=== PATIENT | male | born 1990 | race Caucasian/White ===

== ENCOUNTER 2020-07-30 14:13 | Emergency (ER) | payer OTHER, SELFPAY ==
[2020-07-30] MEDS ORDERED: NA CHLORIDE 0.9% 1,000 ML ONE (15:42)
[2020-07-30 15:52] LABS: Absolute Lymphocytes (CBC) 2.6 K/uL (0.7-4.9); Basophils % 0.6 % (0-1.3); Hematocrit 43.3 % (39.6-49.0); Lymphocytes % 23.5 % (15.3-44.8); MPV 8.2 fL (7.6-11.3); RBC Red Blood Cell Count 4.71 M/uL (4.33-5.43)
[2020-07-30 16:11] LABS: ALT/SGPT 24 U/L (12-78); AST/SGOT 17 U/L (15-37); Albumin 3.9 g/dL (3.4-5.0); Alkaline Phosphatase 86 U/L (45-117); BUN Blood Urea Nitrogen 6 mg/dL (7-18); Bicarbonate 32 mmol/L (21-32); Bilirubin Direct 0.1 mg/dL (0-0.2); Bilirubin Total 0.4 mg/dL (0.2-1.0); Glucose Level 86 mg/dL (74-106); Lipase 78 U/L (73-393); Potassium 3.6 mmol/L (3.5-5.1); Protein, Total 7.5 g/dL (6.4-8.2); Sodium Level 141 mmol/L (136-145)
--- NOTE | 2020-07-30 16:21 | RAD REPORT ---
EXAM DESCRIPTION: CTAbdomen Pelvis W Contrast - 07/30/2020 4:13 pm CLINICAL HISTORY: Abdominal pain. ABD PAIN COMPARISON: No comparisons TECHNIQUE: Biphasic CT imaging of the abdomen and pelvis was performed with 100 ml non-ionic IV cont rast. All CT scans are performed using dose optimization technique as appropriate and may include automated exposure control or mA/KV adjustment according to patient size. FINDINGS: The lung bases are clear. The liver, spleen, pancreas, adrenal glands are within normal limits. Numerous caliceal stones are pr esent bilaterally without hydronephrosis. No bowel obstruction, free air, free fluid or abscess. The appendix is normal. No evidence of signi ficant lymphadenopathy. No suspicious bony findings. IMPRESSION: Bilateral nephrolithiasis without hydronephrosis.
--- NOTE | 2020-07-30 16:45 | ER ---
Nurse's Notes [facility] Name: Oliverio Russell Jr Age: 30 yrs Sex: Male : 1990 Arrival Date: 07/30/2020 Time: 14:14 Bed 16 Private MD: Diagnosis: Diarrhea, unspecified;Generalized abdominal pain Presentation: 07/30 14:32 Chief complaint: Patient states: Upper abdominal pain x months. Noticed worm in stool, ca1 feels like there's worm in my belly. Reports nausea, diarrhea x months. Coronavirus screen: Client denies travel out of the [place] in the last 14 days. At this time, the client does not indicate any symptoms associated with coronavirus-19. Ebola Screen: Patient negative for fever greater than or equal to 101.5 degrees Fahrenheit, and additional compatible Ebola Virus Disease symptoms Patient denies exposure to infectious person. Patient denies travel to an Ebola-affected area in the 21 days before illness onset. No symptoms or risks identified at this time. Initial Sepsis Screen: Does the patient meet any 2 criteria? No. Patient's initial sepsis screen is negative. Does the patient have a suspected source of infection? No. Patient's initial sepsis screen is negative. Risk Assessment: Do you want to hurt yourself or someone else? Patient reports no desire to harm self or others. Onset of symptoms was July 30, 2020. 14:32 Method Of Arrival: Ambulatory ca1 14:32 Acuity: LENARD 3 ca1 Historical: - Allergies: 14:34 No Known Allergies; ca1 - Home Meds: 14:34 None [Active]; ca1 - PMHx: 14:34 None; ca1 - PSHx: 14:34 None; ca1 - Immunization history:: Adult Immunizations up to date. - Social history:: Smoking status: Patient reports the use of cigarette tobacco products, smokes one-half pack cigarettes per day, Patient uses alcohol, on a daily basis. street drugs, marijuana. Screenin:12 Abuse screen: Denies threats or abuse. Nutritional screening: No deficits noted. tw2 Tuberculosis screening: No symptoms or risk factors identified. Fall Risk None identified. Assessment: 15:15 Reassessment: provider at bedside at this time. tw2 15:38 General: Appears in no apparent distress. slender, Behavior is calm, cooperative, tw2 appropriate for age. Pain: Complains of pain in abdomen. Neuro: Level of Consciousness is awake, alert, obeys commands, Oriented to person, place, time, situation. Cardiovascular: Heart tones S1 S2 Patient's skin is warm and dry. Respiratory: Airway is patent Respiratory effort is even, unlabored, Respiratory pattern is regular, symmetrical, Breath sounds are clear bilaterally. GI: Abdomen is flat, Bowel sounds present X 4 quads. Abd is soft X 4 quads Reports lower abdominal pain, upper abdominal pain. : No signs and/or symptoms were reported regarding the genitourinary system. EENT: No signs and/or symptoms were reported regarding the EENT system. Derm: No signs and/or symptoms reported regarding the dermatologic system. Musculoskeletal: Range of motion: intact in all extremities. 16:20 Reassessment: Patient appears in no apparent distress at this time. No changes from tw2 previously documented assessment. Patient and/or family updated on plan of care and expected duration. Pain level reassessed. Patient is alert, oriented x 3, equal unlabored respirations, skin warm/dry/pink. pt back from CT at this time, was found walking out into lobby, pt states "i just need to go smoke", pt educated as to smoke free campus and need to wait in exam room d/t IV, pt states "aww man just take the iv out then i will come back" pt educated as to policies and procedures, agreeable to wait in exam room at this time. once in exam room pt states "well at least let me got get something to eat", pt educated as to the need to wait for results at this time. pt again agreeable. 16:40 Reassessment: pt states "i just am ready to go, i dont want to wait anymore", provider tw2 notified. 16:49 Reassessment: Patient appears in no apparent distress at this time. No changes from tw2 previously documented assessment. Patient and/or family updated on plan of care and expected duration. Pain level reassessed. Patient is alert, oriented x 3, equal unlabored respirations, skin warm/dry/pink. provider at bedside at this time. Vital Signs: 14:35 BP 149 / 108; Pulse 116; Resp 18 S; Temp 99.3(TE); Pulse Ox 99.3% on R/A; Weight 68.04 ca1 kg (R); Height 5 ft. 9 in. (175.26 cm) (R); 15:40 BP 129 / 85; Pulse 80; Resp 16; Pulse Ox 100% on R/A; tw2 16:21 BP 129 / 85; Pulse 88; Resp 17; Temp 98.4(O); Pulse Ox 100% on R/A; tw2 14:35 Body Mass Index 22.15 (68.04 kg, 175.26 cm) ca1 ED Course: 14:14 Patient arrived in ED. ag5 14:34 Triage completed. ca1 14:34 Arm band placed on right wrist. ca1 15:02 Ezra Marie PA is PHCP. jr8 15:02 Chris Ardon MD is Attending Physician. jr8 15:11 Radhika Worthington, GERTRDUE is Primary Nurse. tw2 15:12 Placed in gown. Bed in low position. Call light in reach. Pulse ox on. NIBP on. tw2 15:38 Inserted saline lock: 20 gauge in left antecubital area, using aseptic technique. Blood tw2 collected. 15:41 Stool Culture Sent. tw2 15:42 Ova And Parasites Sent. tw2 15:42 Occult Blood Sent. tw2 15:42 CDIFF Sent. tw2 16:13 CT Abd/Pelvis - IV Contrast Only In Process Unspecified. EDMS 16:45 Andrés Esteban MD is Referral Physician. jr8 16:51 No provider procedures requiring assistance completed. IV discontinued, intact, tw2 bleeding controlled, No redness/swelling at site. Pressure dressing applied. Administered Medications: 15:38 Drug: NS 0.9% 1000 ml Route: IV; Rate: 1000 ml; Site: left antecubital; tw2 16:20 Follow up: Response: No adverse reaction; IV Status: Completed infusion; IV Intake: tw2 1000ml Intake: 16:20 IV: 1000ml; Total: 1000ml. tw2 Outcome: 16:45 Discharge ordered by . jr8 16:51 Discharged to home ambulatory. tw2 16:51 Condition: stable 16:51 Discharge instructions given to patient, Instructed on discharge instructions, follow up and referral plans. no drinking with medication, no driving heavy equipment, medication usage, Demonstrated understanding of instructions, follow-up care, medications, Prescriptions given X 2. 16:51 Patient left the ED. tw2 Signatures: Dispatcher [employer] EDMS Ezra Marie PA PA jr8 Radhika Worthington RN RN tw2 Marielle Smith RN RN ca1 Joanna uJdge ag5 Corrections: (The following items were deleted from the chart) 16:23 16:21 BP 129 / 85; Pulse 88bpm; Resp 17bpm; Pulse Ox 100% RA; tw2 tw2 16:23 16:20 Reassessment: Patient appears in no apparent distress at this time. No changes tw2 from previously documented assessment. Patient and/or family updated on plan of care and expected duration. Pain level reassessed. Patient is alert, oriented x 3, equal unlabored respirations, skin warm/dry/pink. pt back from CT at this time, was found walking out into [facility], pt states "i just need to go smoke", pt educated as to smoke free campus and need to wait in exam room d/t IV, pt states "aww man just take the iv out then i will come back" pt educated as to policies and procedures, agreeable to wait in exam room at this time. tw2 16:50 16:49 Reassessment: Patient appears in no apparent distress at this time. No changes tw2 from previously documented assessment. Patient and/or family updated on plan of care and expected duration. Pain level reassessed. Patient is alert, oriented x 3, equal unlabored respirations, skin warm/dry/pink. tw2
--- NOTE | 2020-07-30 16:46 | EDPHYS ---
Physician Documentation [facility] Name: Oliverio Russell Jr Age: 30 yrs Sex: Male : 1990 Arrival Date: 07/30/2020 Time: 14:14 Bed 16 Private MD: ED Physician Chris Ardon HPI: 07/30 16:48 This 30 yrs old Male presents to ER via Ambulatory with complaints of jr8 Abdominal Pain. 16:48 The patient presents with abdominal pain that is diffuse. Onset: The symptoms/episode jr8 began/occurred gradually, 2 month(s) ago. The symptoms do not radiate. Associated signs and symptoms: Pertinent positives: diarrhea, nausea. The symptoms are described as crampy. Modifying factors: The symptoms are alleviated by nothing, the symptoms are aggravated by nothing. Severity of pain: At its worst the pain was mild in the emergency department the pain is unchanged. The patient has not experienced similar symptoms in the past. The patient has not recently seen a physician. Patient stated that he has had diarrhea with clear looking material in it along with cramping for the past couple of moths without relief. Denies heavy drinking, recent travel, or heavy NSAID use. Feels that he has a "worm" in him. Historical: - Allergies: 14:34 No Known Allergies; ca1 - Home Meds: 14:34 None [Active]; ca1 - PMHx: 14:34 None; ca1 - PSHx: 14:34 None; ca1 - Immunization history:: Adult Immunizations up to date. - Social history:: Smoking status: Patient reports the use of cigarette tobacco products, smokes one-half pack cigarettes per day, Patient uses alcohol, on a daily basis. street drugs, marijuana. ROS: 16:48 Eyes: Negative for injury, pain, redness, and discharge, ENT: Negative for injury, jr8 pain, and discharge, Neck: Negative for injury, pain, and swelling, Cardiovascular: Negative for chest pain, palpitations, and edema, Respiratory: Negative for shortness of breath, cough, wheezing, and pleuritic chest pain, Back: Negative for injury and pain, MS/Extremity: Negative for injury and deformity, Skin: Negative for injury, rash, and discoloration, Neuro: Negative for headache, weakness, numbness, tingling, and seizure. 16:48 Abdomen/GI: Positive for nausea, diarrhea, abdominal cramps. Exam: 16:48 Eyes: Pupils equal round and reactive to light, extra-ocular motions intact. Lids and jr8 lashes normal. Conjunctiva and sclera are non-icteric and not injected. Cornea within normal limits. Periorbital areas with no swelling, redness, or edema. ENT: Nares patent. No nasal discharge, no septal abnormalities noted. Tympanic membranes are normal and external auditory canals are clear. Oropharynx with no redness, swelling, or masses, exudates, or evidence of obstruction, uvula midline. Mucous membranes moist. Neck: Trachea midline, no thyromegaly or masses palpated, and no cervical lymphadenopathy. Supple, full range of motion without nuchal rigidity, or vertebral point tenderness. No Meningismus. Cardiovascular: Regular rate and rhythm with a normal S1 and S2. No gallops, murmurs, or rubs. Normal PMI, no JVD. No pulse deficits. Respiratory: Lungs have equal breath sounds bilaterally, clear to auscultation and percussion. No rales, rhonchi or wheezes noted. No increased work of breathing, no retractions or nasal flaring. Abdomen/GI: Soft, non-tender, with normal bowel sounds. No distension or tympany. No guarding or rebound. No evidence of tenderness throughout. Back: No spinal tenderness. No costovertebral tenderness. Full range of motion. Skin: Warm, dry with normal turgor. Normal color with no rashes, no lesions, and no evidence of cellulitis. MS/ Extremity: Pulses equal, no cyanosis. Neurovascular intact. Full, normal range of motion. Neuro: Awake and alert, GCS 15, oriented to person, place, time, and situation. Cranial nerves II-XII grossly intact. Motor strength 5/5 in all extremities. Sensory grossly intact. Cerebellar exam normal. Normal gait. Vital Signs: 14:35 BP 149 / 108; Pulse 116; Resp 18 S; Temp 99.3(TE); Pulse Ox 99.3% on R/A; Weight 68.04 ca1 kg (R); Height 5 ft. 9 in. (175.26 cm) (R); 15:40 BP 129 / 85; Pulse 80; Resp 16; Pulse Ox 100% on R/A; tw2 16:21 BP 129 / 85; Pulse 88; Resp 17; Temp 98.4(O); Pulse Ox 100% on R/A; tw2 14:35 Body Mass Index 22.15 (68.04 kg, 175.26 cm) ca1 MDM: 15:04 Patient medically screened. [facility] 16:44 Data reviewed: vital signs, nurses notes, lab test result(s), radiologic studies, CT jr8 scan, and as a result, I will discharge patient. Data interpreted: Pulse oximetry: on room air is 100 %. Interpretation: normal. Counseling: I had a detailed discussion with the patient and/or guardian regarding: the historical points, exam findings, and any diagnostic results supporting the discharge/admit diagnosis, lab results, radiology results, the need for outpatient follow up, a machine welt butter, to return to the emergency department if symptoms worsen or persist or if there are any questions or concerns that arise at home. 16:44 ED course: Patient hemodynamically stable and without acute blood or CT findings. jr8 Insistent on leaving before the stool sample comes back. Will d/c to f/u with GI . 07/30 15:20 Order name: Basic Metabolic Panel; Complete Time: 16:44 [facility] 07/30 15:20 Order name: CBC with Diff; Complete Time: 16:44 [facility] 07/30 15:20 Order name: Hepatic Function; Complete Time: 16:44 07/30 15:20 Order name: Lipase; Complete Time: 16:44 [facility] 07/30 15:31 Order name: Stool Culture [facility] 07/30 15:31 Order name: Ova And Parasites [facility] 07/30 15:20 Order name: IV Saline Lock; Complete Time: 15:41 07/30 15:20 Order name: Labs collected and sent; Complete Time: 15:41 07/30 15:31 Order name: Occult Blood [facility] 07/30 15:31 Order name: CDIFF [facility] 07/30 15:31 Order name: CT Abd/Pelvis - IV Contrast Only; Complete Time: 16:44 jr Administered Medications: 15:38 Drug: NS 0.9% 1000 ml Route: IV; Rate: 1000 ml; Site: left antecubital; tw2 16:20 Follow up: Response: No adverse reaction; IV Status: Completed infusion; IV Intake: tw2 1000ml Disposition: 07/31 08:21 Co-signature as Attending Physician, Chris Ardon MD I agree with the assessment and elisha plan of care. Disposition: 07/30/20 16:45 Discharged to Home. Impression: Diarrhea, unspecified, Generalized abdominal pain. - Condition is Stable. - Discharge Instructions: Abdominal Pain, Adult, Diarrhea, Adult. - Prescriptions for Bentyl 20 mg Oral Tablet - take 1 tablet by ORAL route every 6 hours As needed; 20 tablet. Zofran 4 mg Oral Tablet - take 1 tablet by ORAL route every 12 hours As needed; 20 tablet. - Medication Reconciliation Form, Thank You Letter, Antibiotic Education, Prescription Opioid Use form. - Follow up: Andrés Esteban MD; When: 2 - 3 days; Reason: Recheck today's complaints, Continuance of care, Re-evaluation by your physician. - Problem is new. - Symptoms are unchanged. Signatures: Dispatcher [employer] [facility] Chris Ardon MD MD cha Roszak, Josh, PA PA jr8 Radhika Worthington RN RN tw2 Marielle Smith RN RN ca1 Corrections: (The following items were deleted from the chart) 07/30 16:51 16:45 07/30/2020 16:45 Discharged to Home. Impression: Diarrhea, unspecified; tw2 Generalized abdominal pain. Condition is Stable. Forms are Medication Reconciliation Form, Thank You Letter, Antibiotic Education, Prescription Opioid Use. Follow up: Andrés Esteban; When: 2 - 3 days; Reason: Recheck today's complaints, Continuance of care, Re-evaluation by your physician. Problem is new. Symptoms are unchanged. jr8
[2020-07-30 17:34] VITALS: BP 129/85; O2SAT 100
[2020-07-30 17:36] VITALS: TEMP 98.4
[2020-07-31 13:55] LABS: C.diff Antigen/Toxin Ag neg : Tox neg (NEG : NEG)
== END 2020-07-30 16:51 | disposition home or self-care (01) ==
LOC: ER 14:13
DX: R19.7 Diarrhea, unspecified (principal); F17.210 Nicotine dependence, cigarettes, uncomplicated
CPT/HCPCS: 36415; 74177; 80048; 80076; 82274; 82565; 83690; 85025; 87045; 87046; 87177; 87209; 87324; 87449; 96360; 99284; J7030; Q9967

== ENCOUNTER 2022-01-06 14:35 | Emergency (ER) | payer SELFPAY ==
--- OUTSIDE RECORDS SUMMARY | 2022-01-06 14:40 | XMS REPORT | Continuity of Care Document ---
:1990 Author Organization [facility] t Address [address] [place] [address] Care Team Providers Name Role Phone PCP, DOES NOT HAVE A Primary Care Physician Unavailable HAROON Attending Clinician Unavailable NESHA PATIÑO Attending Clinician Unavailable Attending Clinician Unavailable Singer HAYES Attending Clinician DORYS Attending Clinician Unavailable Ebrahim HULL DRAFTER Attending Clinician DEQUAN Attending Clinician Unavailable Dequan HANKINS Attending Clinician NESHA PAYNE Attending Clinician Unavailable NELY Attending Clinician Unavailable JAQUELINE Attending Clinician Unavailable Micaela Lamb MD Attending Clinician Ivonne Go Attending Clinician Unavailable Micaela LAMB Attending Clinician Unavailable Admitting Clinician Unavailable EBRAHIM Admitting Clinician Unavailable NELY Admitting Clinician Unavailable Physician, Primary or Family Admitting Clinician Unavailabl e Payers Payer Name Policy Type Policy Number Effective Date Expiration Date S ource [employer]IME [employer]'S [id number] 2021 2021 COMPENSATION 00:00:00 00:00:00 Problems Condition Condition Condition Status Onset Resolution Last Treating Co mments Source Name Details Category Date Date Treatment Clinician Date No known No known Disease Unive rs active active ity of problems problems [facility] Allergies, Adverse Reactions, Alerts Allergy Allergy Status Severity Reaction(s) Onset Inactive Treating Comm ents Source Name Type Date Date Clinician No Known DA Active U [facility] 07[facility]07 [facility] d 00 [facility] No Known DA Active [facility] NO KNOWN Drug Active Univers ALLERGIE Class ity of S [facility] Social History Social Habit Start Date Stop Date Quantity Comments Source Exposure to Not sure [facility] SARS-CoV-2 (event) Medica l Branch Sex Assigned At [birth year] [facility] 00:00:00 00:00:00 [facility] Smoking Status Start Date Stop Date Source Unknown if ever smoked [facility] Medications Ordered Filled Start Stop Current Ordering Indication Dosage Frequency Signature Comments Components Source Medication Medication Date Date Medication? Clinician (SIG) Name Name HYDROcodone 2021- No 1{tbl} 1 tablet, Univers -acetaminop 12-28 Oral, ity of hen (NORCO) 21:30: 20[place]25 [place] 10[place]325 [place] :00 dose, On Medica l tablet 1 [facility] Branch tablet 12/28/21 at 1530, Routine iopamidol 2021- No [id number] 100mL 100 mL, Univers (ISOVUE 12-28 Intravenou ity o f 370-500 mL) 20:00: 18:40 s, ONCE, 1 [place] injection 00 :00 dose, On Medica l 100 mL Sat Branch 12/28/21 at 1400, Routine NaCl 0.9% 2021- No 500mL at 999 Univ ers (NS) bolus 12-28 mL/hr, 500 it y of infusion 18:15: 20:47 mL, IV [place] 500 mL 00 :00 Infusion, Medical ONCE, 1 Branch dose, On 12/28/21 at 1215, STAT ondansetron 2021- No 4mg 4 mg, Slow Univers (ZOFRAN 12-28 IV Push, ity of (PF)) 18:15: 18:43 ONCE, 1 [place] injection 4 00 :00 dose, On Medi emery mg Sat Branch 12/28/21 at 1215, Routine FENTanyl PF 2021- No 50ug 50 mcg, Un yesica (SUBLIMAZE 12-28 Slow IV ity o f (PF)) 18:15: 18:46 Push, [place] injection 00 :00 ONCE, 1 Medical 50 mcg dose, On Branch 12/28/21 at 1215, Routine naproxen Yes [id number] 550mg Take 1 U nivers sodium 12-28 tablet by ity of (ANAPROX 00:00: mouth 2 [place] DS) 550 mg 00 (two) Medical tablet times Branch daily with meals. methylPREDN Yes [id number] Take by Univers ISolone 12-28 mouth ity of (MEDROL, 00:00: SEE-INSTRU Thanh as CHAKA,) 4 mg 00 CTIONS. Medica l tablets follow Branch package directions methocarbam 2021- Yes [id number] 500mg Take 1 Univers oL 500 mg 12-28 tablet by ity of tablet 00:00: 05:59 mouth 3 [place] 00 :00 (three) Medical times Branch daily for 5 days. famotidine No 20mg 20 mg, Univ ers (PEPCID 12-23 Slow IV ity of (PF)) 02:30: 01:31 Push, [place] injection 00 :00 ONCE, 1 Medical 20 mg dose, On Branch 12/22/21 at 2030, DOMINIK maalox:diph No 15mL 15 mL, Uni vers enhydrAMINE 12-23 Oral, ity of :lidocaine 02:30: 01:32 ONCE, 1 Thanh as 2 % viscous 00 :00 dose, On Medi emery 1:1:1 12/22/21 Branch (FIRST-MOUT at 2030, [facility]) Routine oral suspension 15 mL ondansetron 2021- No 4mg 4 mg, Slow Univers (ZOFRAN 12-23 IV Push, ity of (PF)) 02:30: 01:31 ONCE, 1 [place] injection 4 00 :00 dose, On Medi emery mg 12/22/21 Branch at 2030, DOMINIK morpHINE 2021- No 4mg 4 mg, Slow Un yesica injection 4 12-23 IV Push, ity of mg 02:30: 01:31 ONCE, 1 [place] 00 :00 dose, On Medical 12/22/21 Branch at 2030, STAT NaCl 0.9% 2021- No 1000mL at 999 Uni vers (NS) bolus 12-23 mL/hr, ity of infusion 02:30: 05:01 1,000 mL, Thanh as 1,000 mL 00 :00 IV Medical Infusion, Branch ONCE, 1 dose, On 12/22/21 at 2030, DOMINIK iohexol 2021- No [id number] 120mL 120 mL, U nivers (OMNIPAQUE 12-23 Intravenou it y of 350 02:00: 01:45 s, ONCE, 1 [place] BULK-100 00 :00 dose, On Medical mL) 12/22/21 Branch injection at 2000, 120 mL Routine dicyclomine 2021- Yes [id number] 10mg Take 1 Univers 10 mg 12-22 capsule by ity of capsule 00:00: 05:59 mouth 4 [place] 00 :00 (four) Medical times Branch daily for 7 days. famotidine 2021- Yes [id number] 20mg Take 1 Univers (PEPCID) 20 12-22 tablet by it y of mg tablet 00:00: 05:59 mouth 2 [place] 00 :[place] (two) Medical times Branch daily for 7 days. dicyclomine 2021- Yes [id number] 10mg Take 1 Univers 10 mg 12-22 capsule by ity of capsule 00:00: 05:59 mouth 4 [place] 00 :00 (four) Medical times Branch daily for 7 days. famotidine 2021- Yes [id number] 20mg Take 1 Univers (PEPCID) 20 12-22 tablet by it y of mg tablet 00:00: 05:59 [place] 2 [place] 00 :[place] (two) Medical times Branch daily for 7 days. ondansetron 2021- Yes [id number] 4mg Take 1 Univers 4 mg 12-22 tablet by ity of disintegrat 00:00: 05:59 [place] tablet 00 :00 every 8 Medica l (eight) Branch hours as needed for Nausea and Vomiting (N/V) for up to 5 days. clindamycin 2020-2021- Yes [id number] 300mg Take 1 Univers 300 mg 2-30 11-25 capsule by ity of capsule 00:00: 05:59 mouth 4 [place] 00 :00 (four) Medical times Branch daily for 10 days. Immunizations Ordered Filled Immunization Date Status Comments [facility] e Immunization Name Name Td 1992-02-20 Completed University of 00:00:00 [facility] Td 1992-02-20 Completed University of 00:00:00 [facility] 1992-02-20 Completed University of 00:00:00 [facility] 1992-02-20 Completed University of 00:00:00 [facility] DT 1991 Completed University of 00:00:00 [facility] 1991 Completed University of 00:00:00 [facility] HIB 4 Dose Schedule 1991 Completed Unive rsity of 00:00:00 [facility] HIB 4 Dose Schedule 1991 Completed Unive rsity of 00:00:00 [facility] Polio (IPV/OPV) 1991 Completed Universit y of 00:00:00 [facility] Polio (IPV/OPV) 1991 Completed [facility] 00:[facility]:00 [facility] HIB 4 Dose Schedule 1991 Completed Unive rsity of 00:00:00 [facility] Polio (IPV/OPV) 1991 Completed Universit y of 00:00:00 [facility] DTP 1991 Completed University of 00:00:00 [facility] HIB 4 Dose Schedule 1991 Completed Unive rsity of 00:00:00 [facility] Polio (IPV/OPV) 1991 Completed Universit y of 00:00:00 [facility] DTP 1991 Completed University of 00:00:00 [facility] DTP 1991 Completed University of 00:00:00 [facility] HIB 4 Dose Schedule 1991 Completed Unive rsity of 00:00:00 [facility] Polio (IPV/OPV) 1991 Completed Universit y of 00:00:00 [facility] HIB 4 Dose Schedule 1991 Completed Unive rsity of 00:00:00 [facility] Polio (IPV/OPV) 1991 Completed Universit y of 00:00:00 [facility] DTP 1991 Completed University of 00:00:00 [facility] HIB 4 Dose Schedule 1991 Completed Unive rsity of 00:00:00 [facility] Polio (IPV/OPV) 1991 Completed Universit y of 00:00:00 [facility] DTP 1991 Completed University of 00:00:00 [facility] HIB 4 Dose Schedule 1991 Completed Unive rsity of 00:00:00 [facility] Polio (IPV/OPV) 1991 Completed Universit y of 00:00:00 [facility] DTP 1991 Completed University of 00:00:00 [facility] DTP 1991 Completed University of 00:00:00 [facility] HIB 4 Dose Schedule 1991 Completed Unive rsity of 00:00:00 [facility] Polio (IPV/OPV) 1991 Completed Universit y of 00:00:00 [facility] HIB 4 Dose Schedule 1991 Completed Unive rsity of 00:00:00 [facility] Polio (IPV/OPV) 1991 Completed Universit y of 00:00:00 [facility] DTP 1991 Completed University of 00:00:00 [facility] HIB 4 Dose Schedule 1991 Completed Unive rsity of 00:00:00 [facility] Polio (IPV/OPV) 1991 Completed Universit y of 00:00:00 [facility] DTP 1991 Completed University of 00:00:00 [facility] HIB 4 Dose Schedule 1991 Completed Unive rsity of 00:00:00 [facility] Polio (IPV/OPV) 1991 Completed Universit y of 00:00:00 [facility] Vital Signs Vital Name Observation Time Observation Value Comments Source Systolic blood 2021-12-28 20:30:00 130 mm[Hg] Univer sity of pressure [place] [facility] Diastolic blood 2021-12-28 20:30:00 91 mm[Hg] Unive rsity of pressure [place] [facility] Heart rate 2021-12-28 20:30:00 75 /min Universi ty [facility] [place] [facility] Body temperature 2021-12-28 20:30:00 36.78 Ruchi Univ ersity of [place] [facility] Respiratory rate 2021-12-28 20:30:00 17 /min Univ ersity of [place] [facility] Oxygen saturation in 2021-12-28 20:30:00 100 /min University of Arterial blood by [place] [employer] emery Pulse oximetry Branch Body height 2021-12-28 18:11:00 175.3 cm Universi ty [facility] [place] [facility] Body weight 2021-12-28 18:11:00 77.111 kg [facility]i [facility] [place] [facility] BMI 2021-12-28 18:11:00 25.10 kg/m2 [facility]i [facility] [place] [facility] Systolic blood 2021-12-23 04:50:00 121 mm[Hg] Univer sity of pressure [place] [facility] Diastolic blood 2021-12-23 04:50:00 76 mm[Hg] Unive rsity of pressure [place] [facility] Heart rate 2021-12-23 04:50:00 81 /min Universi ty [facility] [place] [facility] Respiratory rate 2021-12-23 04:50:00 16 /min Univ ersity of [place] [facility] Oxygen saturation in 2021-12-23 04:50:00 99 /min University of Arterial blood by [place] [employer] emery Pulse oximetry Branch Body weight 2021-12-23 01:12:00 77.111 kg [facility]i [facility] [place] [facility] BMI 2021-12-23 01:12:00 25.10 kg/m2 [facility] [place] [facility] Body temperature 2021-12-23 01:12:00 36.78 Ruchi Univ [facility] [place] [facility] Body height 2021-12-23 01:12:00 175.3 cm Universi ty [facility] [place] [facility] Systolic blood 2021-11-14 07:29:00 160 mm[Hg] Univer sity of pressure [place] [facility] Diastolic blood 2021-11-14 07:29:00 115 mm[Hg] Unive rsity of pressure [place] [facility] Heart rate 2021-11-14 07:29:00 108 /min Universi ty [facility] [place] [facility] Body temperature 2021-11-14 07:29:00 36.44 Ruchi Univ [facility] [place] [facility] Respiratory rate 2021-11-14 07:29:00 18 /min Univ ersity [facility] [place] [facility] Body height 2021-11-14 07:29:00 175.3 cm [facility] [place] [facility] Body weight 2021-11-14 07:29:00 72.576 kg [facility] [place] [facility] BMI 2021-11-14 07:29:00 23.63 kg/m2 [facility] [place] [facility] Oxygen saturation in 2021-11-14 07:29:00 99 /min University of Arterial blood by [facility] Pulse oximetry Branch Systolic blood 2021-07-26 02:40:00 138 mm[Hg] Univer sity of pressure [place] [facility] Diastolic blood 2021-07-26 02:40:00 82 mm[Hg] Unive rsity of pressure [place] [facility] Heart rate 2021-07-26 02:40:00 135 /min Universi ty [facility] [place] [facility] Body temperature 2021-07-26 02:40:00 37.5 Ruchi Univ ers[facility] [place] [facility] Respiratory rate 2021-07-26 02:40:00 18 /min Univ ersity [facility] [place] [facility] Body height 2021-07-26 02:40:00 175.3 cm [facility]i [facility] [place] [facility] Body weight 2021-07-26 02:40:00 72.576 kg [facility]i [facility] [place] [facility] BMI 2021-07-26 02:40:00 23.63 kg/m2 [facility] [place] [facility] Oxygen saturation in 2021-07-26 02:40:00 98 /min University of Arterial blood by [facility] Pulse oximetry Branch Procedures Procedure Date / Time Performed Performing Clinician Sourc e NM RESUP NPTERF WND 2021-12-28 20:39:57 [facility] [place] B[facility] 2.6-7.5 CM Medical Branch URINALYSIS 2021-12-28 20:01:00 Abril Mcdonald o f [place] [facility] CT TRAUMA THORAX W 2021-12-28 18:48:57 Mcdonald, [facility] CONTRAST Medical Branch CT TRAUMA THORACIC 2021-12-28 18:48:57 Singer [facility] SPINE WO CONTRAST Medical Branch CT TRAUMA ABDOMEN 2021-12-28 18:48:57 Singer [facility] PELVIS W CONTRAST Medical Branch CT TRAUMA LUMBAR SPINE 2021-12-28 18:48:57 Abril Mcdonald [facility] CONTRAST Medical Branch XR ELBOW <3 VW LEFT 2021-12-28 18:47:52 Singer [facility] Medical [place] CT TRAUMA HEAD WO 2021-12-28 18:34:47 Singer [facility] CONTRAST Medical Branch CT TRAUMA CERVICAL 2021-12-28 18:34:47 Singer [facility] SPINE CONTRAST Medical [place] COMP. METABOLIC PANEL 2021-12-28 18:15:[address] [facility] ([id number]) Medical Branch ETHANOL 2021-12-28 18:15:00 Singer [facility] CBC WITH DIFF 2021-12-28 18:15:00 Singer [facility] CONSENT/REFUSAL FOR 2021-12-28 17:55:34 Doctor Unassigned, No [facility] DIAGNOSIS AND Name Medical [place] TREATMENT US GALL BLADDER 2021-12-23 04:14:23 Dorys [facility] CT ABDOMEN PELVIS W 2021-12-23 01:49:34 Chuck Saul [facility] CONTRAST Medical Branch LIPASE 2021-12-23 01:26:00 Dorys [facility] COMP. METABOLIC PANEL 2021-12-23 01:26:[address] [facility] ([id number]) [facility] CBC WITH DIFF 2021-12-23 01:26:00 Dorys [facility] URINALYSIS 2021-12-23 01:26:00 Dorys [facility] NOTICE OF PRIVACY 2021-12-23 01:08:51 Doctor Unassigned, No Univ [facility] PRACTICES Name Medical Branch CONSENT/REFUSAL FOR 2021-12-23 01:06:38 Doctor Unassigned, No [facility] [place] DIAGNOSIS AND Name Medical Branch TREATMENT NOTICE OF PRIVACY 2021-11-14 07:27:15 Doctor Unassigned, No Univ [facility] [place] PRACTICES Name Medical Branch CONSENT/REFUSAL FOR 2021-11-14 07:24:18 Doctor Unassigned, No [facility] [place] DIAGNOSIS AND Name Medical Branch TREATMENT NOTICE OF PRIVACY 2021-07-26 02:38:21 Doctor Unassigned, No Univ ersity of [facility] Name Medical Branch CONSENT/REFUSAL FOR 2021-07-26 02:31:29 Doctor Unassigned, No Un [facility] [place] DIAGNOSIS AND Name Medical Branch TREATMENT Encounters Start End Encounter Admission Attending Care Care Encounter Source Date/Time Date/Time Type Type Clinicians Facility Department ID 2021-12-30 Outpatient GREIVES, [facility] [id number] [place] 01:03:39 [facility] 2021-10-07 Outpatient GREIVES, [facility] [id number] [place] 01:04:00 [facility] 2021-10-02 Out[facility], [facility] [id number] [facility] 14[facility]27:[address] [facility] 2021-09-24 Outpatient [facility] [id number] [place] 08:43:16 [facility] 2021-09-04 Outpatient [facility] [id number] [place] 14:24:26 [facility] 2021-08-14 Outpatient [facility] [id number] [place] 13:06:35 [facility] 2021-07-31 Outpatient [facility] [id number] [place] 13:40:55 [facility] 2021-07-24 Outpatient [facility] [id number] [place] 09:01:41 [facility] 2021-12-28 2021-12-28 Emergency X SINGER [facility] ERT [id number] Univers 12:07:00 15:04:00 ABRIL ken [facility] 2021-12-28 2021-12-28 Emergency Singer [facility] [id number] Univers 12:07:00 15:04:00 Abril HERRERA [id number] i ty [facility] [id number] [facility] [id number] [place] [address] Branch 2021-12-22 2021-12-22 Emergency X DORYS [facility] ERT [id number] Univers 19:19:00 23:28:00 CHUCK ity [facility] 2021-12-22 2021-12-22 [facility] [id number] Univers 19:19:00 23:28:00 Chuck HERRERA 350.1.13.10 i ty of [place] [id number] [facility] [id number] [address] 2021-11-14 2021-11-14 [facility] [id number] Univers 01:27:00 02:08:00 [facility] 2021-11-14 2021-11-14 Emergency [facility] [id number] Univers 01:27:00 02:08:00 Ritu HERRERA 350.1.13.10 i ty of [place] [id number] [facility] [id number] [address] 2021-10-09 2021-10-09 Emergency E ELMER, BL BL [id number] MHBL 08:44:00 11:51:00 RENEE 2021-09-30 2021-10-01 Inpatient E NELY, [facility] MED [id number] [facility] 04:24:00 14:30:00 MONICA 2021-09-29 2021-09-30 Emergency E AZNAUROVA-A MHBL BL [id number] MHBL 23:32:00 04:11:00 [place] 2021-07-25 2021-07-25 Emergency [facility] [id number] Univers 21:44:00 22:03:00 Av Herrera [id number] ity of [place] [id number] [facility] [id number] [address] 2021-07-25 2021-07-25 Emergency X [facility] ERT [id number] Univers 21:31:00 21:31:00 ity [facility] 2021-07-07 2021-07-07 Emergency EM Donavan, [facility] [id number] [facility] 18:54:00 20:20:00 Mesha [id number] [facility] 2020-08-06 2020-08-06 Emergency X MIRTHA [facility] ERT [id number] Univers 03:08:00 03:21:00 AV ken [facility] Results Test Description Test Time Test Comments Results Result Comments Source ETHANOL 2021-12-28 18:57:22 Test Item Value Reference Range Interpretation Comme nts ALCOHOL (test code = 4773882892) <10 mg/dL CITLALI (test code = CITLALI) <10 [id number] Toxic>100 Depression of PROOF LO[employer] MECHANIC>[address] [facility] ([id number])2021-12-28 18:52:06 Test Item Value Reference Range Interpretation Comments NA (test code = 139 mmol/L 135-145 9421448412) K (test code = 4.6 mmol/L 3.5-5.0 0671701384) CL (test code = 104 mmol/L 98-108 0138483364) CO2 TOTAL (test code = 30 mmol/L 23-31 6989828211) AGAP (test code = 2-16 9229830691) BUN (test code = 15 mg/dL 7-23 3830999482) GLUCOSE (test code = 128 mg/dL 70-110 H 1065430814) CREATININE (test code = 0.95 mg/dL 0.60-1.25 5196106085) TOTAL BILI (test code = 0.9 mg/dL 0.1-1.1 2458315689) CALCIUM (test code = 9.2 mg/dL 8.6-10.6 9583205277) T PROTEIN (test code = 7.6 g/dL 6.3-8.2 1123198603) ALBUMIN (test code = 4.8 g/dL 3.5-5.0 0427762970) ALK PHOS (test code = 86 U/L 34-122 5728281165) ALTv (test code = 23 U/L 5-50 1742-6) AST(SGOT) (test code = 31 U/L 13-40 1768987515) eGFR (test code = mL/min/1.73m2 2147494380) CITLALI (test code = CITLALI) Association of Glomerular Filtration Rate (GFR) and Staging of Kidney Disease* + --+ --+ ------+| GFR (mL/min/1.73 m2) ?| With Kidney Damage ?| ?Without Kidney Damage+ --------+ --------+ +| ?>90 ?| ?Stage one ?| ? Normal ?+ ---+ ---+ -------+| ?60-89 ?| ?Stage two ?| ? Decreased GFR ? + --+ --+ ------+| ?30-59 ?| ?Stage three ?| ? Stage three ? + --+ --+ ------+| ?15-29 ?| ?Stage four ? | ? Stage four ?+ ---+ ---+ -------+| ?<15 (or dialysis) ? ?| ?Stage five ? | ? Stage five ?+ ---+ ---+ -------+ *Each stage assumes the associated GFR level has been in effect for at least three months. ?Stages 1 to 5, with or without kidney disease, indicate chronic kidney disease. Notes: Determination of stages one and two (with eGFR >59mL/min/1.73 m2) requires estimation of kidney damage for at least three months as defined by structural or functional abnormalities of the kidney, manifested by either:Pathological abnormalities or Markers of kidney damage (including abnormalities in the composition of the blood or urine or abnormalities in imaging tests). Lab Interpretation Abnormal (test code = 83723-4) [facility] WITH [id number] 18:31:04 Test Item Value Reference Range Interpretation Comments WBC (test code = See_Comment H [Automated 0588-2) message] The sy stem which generated this result transmitted reference range : 4.20 - 10.70 10*3/?L. The reference range was not used to interpret this result as normal/abnormal . RBC (test code = See_Comment [Automated 815-8) message] The sy stem which generated this result transmitted reference range : 4.26 - 5.52 10*6/?L. The reference range was not used to interpret this result as normal/abnormal . HGB (test code = 15.4 g/dL 12.2-16.4 718-7) HCT (test code = 46.2 % 38.4-49.3 4544-3) MCV (test code = 90.6 fL 81.7-95.6 787-2) MCH (test code = 30.2 pg 26.1-32.7 785-6) MCHC (test code = 33.3 g/dL 31.2-35.0 786-4) RDW-SD (test code = 45.6 fL 38.5-51.6 12815-3) RDW-CV (test code = 13.6 % 12.1-15.4 788-0) PLT (test code = See_Comment H [Automated 777-3) message] The sy stem which generated this result transmitted reference range : 150 - 328 10*3/ ?L. The reference r marcos was not used to interpret this result as normal/abnormal . MPV (test code = 10.1 fL 9.8-13.0 10357-5) NRBC/100 WBC (test See_Comment [Automat ed code = 8110816045) message] The system which generated this result transmitted reference range : 0.0 - 10.0 /100 WBCs. The refer ence range was not u sed to interpret th is result as normal/abnormal . NRBC x10^3 (test code <0.01 See_Comment [Auto mated = 1398730010) message] The s ystem which generated this result transmitted reference range : 10*3/?L. The reference range was not used to interpret this result as normal/abnormal . GRAN MAT (NEUT) % 64.5 % (test code = 770-8) IMM GRAN % (test code 0.40 % = 1177368915) LYMPH % (test code = 25.2 % 736-9) MONO % (test code = 7.0 % 5905-5) EOS % (test code = 2.3 % 713-8) BASO % (test code = 0.6 % 706-2) GRAN MAT x10^3(ANC) 8.06 10*3/uL 1.99-6.95 H (test code = 9678989143) IMM GRAN x10^3 (test 0.05 10*3/uL 0.00-0.06 code = 7093103151) LYMPH x10^3 (test code 3.15 10*3/uL 1.09-3.23 = 731-0) MONO x10^3 (test code 0.87 10*3/uL 0.36-1.02 = 742-7) EOS x10^3 (test code = 0.29 10*3/uL 0.06-0.53 711-2) BASO x10^3 (test code 0.07 10*3/uL 0.01-0.09 = 704-7) Lab Interpretation Abnormal (test code = 72067-1) [facility]. METABOLIC PANEL ([id number])2021-12-23 01:53:16 Test Item Value Reference Range Interpretation Comments NA (test code = 140 mmol/L 135-145 9042222831) K (test code = 4.3 mmol/L 3.5-5.0 1873707099) CL (test code = 99 mmol/L 98-108 8105911093) CO2 TOTAL (test code = 32 mmol/L 23-31 H 6800776785) AGAP (test code = 2-16 5337209215) BUN (test code = 17 mg/dL 7-23 1602020237) GLUCOSE (test code = 126 mg/dL 70-110 H 9919369315) CREATININE (test code = 0.96 mg/dL 0.60-1.25 2344144525) TOTAL BILI (test code = 0.8 mg/dL 0.1-1.6 2996771103) CALCIUM (test code = 9.2 mg/dL 8.6-10.6 0594654064) T PROTEIN (test code = 7.9 g/dL 6.3-8.2 4832204686) ALBUMIN (test code = 5.2 g/dL 3.5-5.0 H 5566748475) ALK PHOS (test code = 110 U/L 34-122 8442356136) ALTv (test code = 22 U/L 5-50 1742-6) AST(SGOT) (test code = 30 U/L 13-40 9197808158) eGFR (test code = mL/min/1.73m2 8297910812) CITLALI (test code = CITLALI) Association of Glomerular Filtration Rate (GFR) and Staging of Kidney Disease* + --+ --+ ------+| GFR (mL/min/1.73 m2) ?| With Kidney Damage ?| ?Without Kidney Damage+ --------+ --------+ +| ?>90 ?| ?Stage one ?| ? Normal ?+ ---+ ---+ -------+| ?60-89 ?| ?Stage two ?| ? Decreased GFR ? + --+ --+ ------+| ?30-59 ?| ?Stage three ?| ? Stage three ? + --+ --+ ------+| ?15-29 ?| ?Stage four ? | ? Stage four ?+ ---+ ---+ -------+| ?<15 (or dialysis) ? ?| ?Stage five ? | ? Stage five ?+ ---+ ---+ -------+ *Each stage assumes the associated GFR level has been in effect for at least three months. ?Stages 1 to 5, with or without kidney disease, indicate chronic kidney disease. Notes: Determination of stages one and two (with eGFR >59mL/min/1.73 m2) requires estimation of kidney damage for at least three months as defined by structural or functional abnormalities of the kidney, manifested by either:Pathological abnormalities or Markers of kidney damage (including abnormalities in the composition of the blood or urine or abnormalities in imaging tests). Lab Interpretation Abnormal (test code = 55253-6) [facility]22-[facility] 01:52:56 Test Item Value Reference Range Interpretation Comments LIPASE (test code = 8893772006) 141 U/L 0-220 Lab Interpretation (test code = Normal 08098-3) [facility] WITH [id number] 01:45:15 Test Item Value Reference Range Interpretation Comments WBC (test code = See_Comment H [Automated 9379-2) message] The system which generated this result transmit jose reference range : 4.20 - 10.70 10*3/?L. The reference range was not used to interpret this result as normal/abnormal . RBC (test code = See_Comment [Automated 601-7) message] The system which generated this result transmit jose reference range : 4.26 - 5.52 10*6/?L. The reference range was not used to interpret this result as normal/abnormal . HGB (test code = 16.8 g/dL 12.2-16.4 H 718-7) HCT (test code = 48.5 % 38.4-49.3 4544-3) MCV (test code = 88.3 fL 81.7-95.6 787-2) MCH (test code = 30.6 pg 26.1-32.7 785-6) MCHC (test code = 34.6 g/dL 31.2-35.0 786-4) RDW-SD (test code = 43.8 fL 38.5-51.6 29031-7) RDW-CV (test code = 13.5 % 12.1-15.4 788-0) PLT (test code = See_Comment H [Automated 777-3) message] The system which generated

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
--- NOTE | 2022-01-06 14:53 | ER ---
Nurse's Notes [facility] Name: Oliverio Russell Jr Age: 32 yrs Sex: Male : 1990 Arrival Date: 01/06/2022 Time: 14:37 Bed Waiting Private MD: Diagnosis: Encounter for removal of sutures Presentation: 01/06 14:50 Chief complaint: Patient states: Fell off of a roof about 10 days ago and cut arm, ph israel to L forearm, redness noted, pt reports pain to area. Coronavirus screen: Vaccine status: Patient reports being unvaccinated. Ebola Screen: No symptoms or risks identified at this time. Initial Sepsis Screen: Does the patient meet any 2 criteria? No. Patient's initial sepsis screen is negative. Does the patient have a suspected source of infection? No. Patient's initial sepsis screen is negative. Risk Assessment: Do you want to hurt yourself or someone else? Patient reports no desire to harm self or others. Onset of symptoms was January 06, 2022. 14:50 Method Of Arrival: Ambulatory ph 14:50 Acuity: LENARD 5 ph Historical: - Allergies: 14:53 No Known Allergies; ph - PMHx: 14:53 None; ph - Immunization history:: Last tetanus immunization: up to date. - Social history:: Smoking status: unknown. Screenin:54 Abuse screen: Denies threats or abuse. Denies injuries from another. Nutritional ph screening: No deficits noted. Tuberculosis screening: No symptoms or risk factors identified. Fall Risk None identified. Assessment: 14:57 Reassessment: VOLTAGE TESTER in triage to remove israel, pt prescribed antibiotic and d/c from ph triage. General: Appears in no apparent distress. comfortable, slender, Behavior is calm, cooperative, appropriate for age, Denies fever. Pain: Complains of pain in palmar aspect of left forearm. Neuro: No deficits noted. Derm: Skin is healthy with good turgor, Skin is pink, warm \T\ dry. Vital Signs: 14:50 Pulse 87; Resp 18; Temp 98.2; Pulse Ox 100% on R/A; ph 14:54 BP 149 / 101; ph ED Course: 14:37 Patient arrived in ED. mr 14:52 Kami Arzola FNP-C is [facility]. kb 14:52 Chris Ardon MD is Attending Physician. kb 14:53 Triage completed. ph 14:54 Arm band placed on. ph 14:58 Patient has correct armband on for positive identification. ph 14:58 No provider procedures requiring assistance completed. Patient did not have IV access ph during this emergency room visit. Administered Medications: No medications were administered Outcome: 14:53 Discharge ordered by . kb 14:58 Discharged to home ambulatory. ph 14:58 Condition: good 14:58 Discharge instructions given to patient, Instructed on discharge instructions, follow up and referral plans. medication usage, Demonstrated understanding of instructions, follow-up care, medications, Prescriptions given X 1. 14:58 Patient left the ED. ph Signatures: Kami Arzola, LINA HESS-Donna Ron mr Yudy Montiel, GERTRUDE RN ph
[2022-01-06 15:04] VITALS: TEMP 98.2; O2SAT 100
[2022-01-06 15:05] VITALS: BP 149/101
== END 2022-01-06 14:58 | disposition home or self-care (01) ==
LOC: ER 14:35
DX: Z48.02 Encounter for removal of sutures (principal)
CPT/HCPCS: 99282